=== PATIENT | female | born 1980 | race Hispanic/Latino ===

== ENCOUNTER 2018-01-13 01:57 | Emergency (ER) | payer OTHER ==
[~2018-01-13] VITALS: Ht 154.9 cm; Wt 81.6 kg
[2018-01-13 02:55] VITALS: BP 142/78
[2018-01-13] MEDS ORDERED: GABAPENTIN300 MG PO (02:59)
[2018-01-13] MEDS ORDERED: MELOXICAM7.5 MG PO (02:59)
[2018-01-13] MEDS ORDERED: PEPCID20 MG PO (02:59)
== END 2018-01-13 03:11 | disposition home or self-care (01) ==
LOC: FSED 01:57
DX: R20.2 Paresthesia of skin (principal); E78.5 Hyperlipidemia, unspecified
CPT/HCPCS: 93005; 99282